=== PATIENT | male | born 1975 | race Caucasian/White ===

== ENCOUNTER 2024-02-27 09:07 | Outpatient (CLI) | payer OTHER, SELFPAY ==
--- NOTE | 2024-02-27 11:15 | NEURO_ITS ---
Impression: # Complains of pain in left upper extremity with weakness. Non- diabetic. # No Carpal Tunnel Syndrome or ulnar neuropathy. # Left Radial motor nerve response absent. # Needle/EMG exam abnormal With decreased motor unit potential in extensor compartment. Nerve Conduction Studies Anti Sensory Summary Table Stim Site NR Peak (ms) P-T Amp (?V) Site1 Site2 Delta-P (ms) Dist (cm) Jv (m/s) Left Median Anti Sensory (2-3nd Digit) Wrist 3.2 40.4 Wrist 2-3nd Digit 3.2 14.0 44 Wrist 3.1 37.3 Wrist 2-3nd Digit 3.2 14.0 44 Left Radial Anti Sensory (Base 1st Digit) Wrist 1.8 18.3 Wrist Base 1st Digit 1.8 0.0 Left Ulnar Anti Sensory (5th Digit) Wrist 2.5 17.6 Wrist 5th Digit 2.5 14.0 56 Motor Summary Table Stim Site NR Onset (ms) O-P Amp (mV) Site1 Site2 Delta-0 (ms) Dist (cm) Jv (m/s) Left Median Motor (Abd Poll Brev) Wrist 3.5 6.6 Elbow Wrist 5.2 31.0 60 Elbow 8.7 5.7 Left Radial Motor (Ext Ind Prop) NO RESPONSE Up Arm NR Axilla Up Arm 0.0 Axilla NR Left Ulnar Motor (Abd Dig Minimi) Wrist 2.7 4.4 A Elbow Wrist 5.3 32.0 60 A Elbow 8.0 3.2 F Wave Studies NR F-Lat (ms) L-R F-Lat (ms) Left Median (Mrkrs) (Abd Poll Brev) 30.86 Left Ulnar (Mrkrs) (Abd Dig Min) 30.49 EMG Side Muscle Nerve Root Ins Act Fibs Amp Dur Recrt Comment Left 1stDorInt Ulnar C8-T1 Nml Nml Nml >12ms +1 Left Ext Indicis Radial (Post Int) C7-8 Nml Nml Nml >12ms +3 Left Ext Digitorum Radial (Post Int) C7-8 Nml Nml Nml >12ms +3 Left BrachioRad Radial C5-6 Nml Nml Nml >12ms +1 Left PronatorTeres Median C6-7 Nml Nml Nml >12ms +1 Left Abd Poll Brev Median C8-T1 Nml Nml Nml >12ms +1 Left ABD Dig Min Ulnar C8-T1 Nml Nml Nml >12ms +1 Left Biceps Musculocut C5-6 Nml Nml Nml >12ms +1 Left Triceps Radial C6-7-8 Nml Nml Nml >12ms +3 Left Deltoid Axillary C5-6 Nml Nml Nml >12ms +1 MTDD
== END 2024-02-27 09:08 | disposition home or self-care (01) ==
LOC: ANHNEURO 09:09
PROVIDERS: PCP Internal Medicine Gastroenterology; Visit Provider Internal Medicine Gastroenterology
DX: M79.602 Pain in left arm (principal)
CPT/HCPCS: 95886; 95909